=== PATIENT | male | born 1960 | race Caucasian/White ===

== ENCOUNTER 2022-05-14 07:29 | Outpatient (CLI) | payer OTHER ==
[~2022-05-14 07:29] MED LIST: ANAPROX275 MG PO; ATACAND4 MG PO; BUDEPRION XL300 MG PO; LAMICTAL200 MG PO
== END 2022-05-14 07:30 | disposition home or self-care (01) ==
LOC: NUCLEAR 07:29
PROVIDERS: ATTEND Internal Medicine Cardiovascular Disease
DX: I20.9 Angina pectoris, unspecified (principal)
CPT/HCPCS: 78452; 93017; A9500; J0153

== ENCOUNTER 2024-04-14 07:12 | Outpatient (CLI) | payer OTHER | END 2024-04-14 07:23 | disposition home or self-care (01) | LOC: MRI 07:12 | PROVIDERS: ATTEND Specialist | DX: R22.2 Localized swelling, mass and lump, trunk (principal) | CPT/HCPCS: 72149 ==

== ENCOUNTER 2024-04-16 13:45 | Outpatient (CLI) | payer OTHER | END 2024-04-16 13:48 | disposition home or self-care (01) | LOC: SONOGRAMA 13:45 | PROVIDERS: ATTEND Pathology Anatomic Pathology & Clinical Pathology | DX: R22.1 Localized swelling, mass and lump, neck (principal) ==